=== PATIENT | male | born 1950 | race Caucasian/White ===

== ENCOUNTER 2016-12-21 08:51 | Outpatient (CLI) | payer MEDICARE | END 2016-12-21 08:52 | disposition home or self-care (01) | DX: E78.00 Pure hypercholesterolemia, unspecified (principal); I10 Essential (primary) hypertension ==

== ENCOUNTER 2017-11-16 11:12 | Outpatient (CLI) | payer MEDICARE ==
[2017-11-16 17:39] LABS: BASOPHILS % (AUTO) 0.6 %; EOSINOPHILS # (AUTO) 0.1 10^3/uL (0.0-0.7); EOSINOPHILS % (AUTO) 1.4 %; HGB - HEMOGLOBIN 15.8 g/dL (14.0-18.0); LYMPHOCYTES # (AUTO) 2.4 10^3/uL (1.5-3.5); LYMPHOCYTES % (AUTO) 32.8 %; MEAN CORPUSCULAR HEMOGLOBIN 28.9 pg (27.0-31.0); MEAN CORPUSCULAR HGB CONC 32.8 g/dL (32.0-36.0); MEAN CORPUSCULAR VOLUME 88.1 fL (80.0-94.0); MEAN PLATELET VOLUME 9.7 fL (7.4-11.4); MONOCYTES # (AUTO) 0.6 10^3/uL (0.0-1.0); MONOCYTES % (AUTO) 8.4 %; NEUTROPHILS # (AUTO) 4.2 10^3/uL (1.5-6.6); NEUTROPHILS % (AUTO) 56.8 %; PLT - PLATELET COUNT 209 10^3/uL (130-450); RED BLOOD COUNT 5.48 10^6/uL (4.70-6.10); RED CELL DISTRIBUTION WIDTH 13.4 % (12.0-15.0); WHITE BLOOD COUNT 7.3 x10^3/uL (4.8-10.8)
[2017-11-16 18:15] LABS: ALBUMIN 4.3 g/dL (3.2-5.5); ALBUMIN/GLOBULIN RATIO 1.5 (1.0-2.2); ALKALINE PHOSPHATASE 57 IU/L (42-121); ALT ALANINE AMINOTRANSFERASE 31 IU/L (10-60); AST ASPARTATE AMINOTRANSFERASE 25 IU/L (10-42); BILIRUBIN,TOTAL 0.6 mg/dL (0.2-1.0); BUN - BLOOD UREA NITROGEN 14 mg/dL (6-20); CARBON DIOXIDE - CO2 27 mmol/L (21-32); CHLORIDE 100 mmol/L (101-111); CHOL/HDL RATIO 4.3 (<5.0); CHOLESTEROL 126 mg/dL; CREATININE 0.8 mg/dL (0.6-1.2); GFR - MDRD 97 (>89); GLUCOSE 98 mg/dL (70-100); HDL CHOLESTEROL 29 mg/dL; LDL CHOLESTEROL,CALCULATED 78 mg/dL; LDL/HDL RATIO 2.7 (<3.6); SODIUM 137 mmol/L (135-145); TOTAL PROTEIN 7.1 g/dL (6.7-8.2); VLDL CHOLESTEROL 19 mg/dL
== END 2017-11-16 11:13 | disposition home or self-care (01) ==
LOC: LAB.F 11:12
PROVIDERS: ATTEND Nurse Practitioner Family
DX: I25.10 Atherosclerotic heart disease of native coronary artery without angina pectoris (principal); Z12.5 Encounter for screening for malignant neoplasm of prostate; E78.00 Pure hypercholesterolemia, unspecified; R10.13 Epigastric pain
CPT/HCPCS: 36415; 80053; 80061; 84443; 85025; G0103; 83721; 84153

== ENCOUNTER 2024-03-21 20:54 | Emergency (ER) | payer MEDICARE ==
[2024-03-21 22:03] LABS: BASOPHILS % (AUTO) 0.3 %; EOSINOPHILS # (AUTO) 0.1 10^3/uL (0.0-0.7); EOSINOPHILS % (AUTO) 0.5 %; HCT - HEMATOCRIT 50.2 % (42.0-52.0); HGB - HEMOGLOBIN 16.3 g/dL (14.0-18.0); LYMPHOCYTES # (AUTO) 0.7 10^3/uL (1.5-3.5); LYMPHOCYTES % (AUTO) 4.6 %; MEAN CORPUSCULAR HEMOGLOBIN 29.3 pg (27.0-31.0); MEAN CORPUSCULAR HGB CONC 32.5 g/dL (32.0-36.0); MEAN CORPUSCULAR VOLUME 90.3 fL (80.0-94.0); MEAN PLATELET VOLUME 11.7 fL (7.4-11.4); MONOCYTES # (AUTO) 1.3 10^3/uL (0.0-1.0); MONOCYTES % (AUTO) 8.9 %; NEUTROPHILS # (AUTO) 12.1 10^3/uL (1.5-6.6); NEUTROPHILS % (AUTO) 85.4 %; PLT - PLATELET COUNT 223 10^3/uL (130-450); RED BLOOD COUNT 5.56 10^6/uL (4.70-6.10); RED CELL DISTRIBUTION WIDTH 12.6 % (12.0-15.0); WHITE BLOOD COUNT 14.2 x10^3/uL (4.8-10.8)
[2024-03-21] MEDS: OXYMETAZOLINE HCL 100 SPRAYS BOTTLE NAS STA (22:17)
[2024-03-21] MEDS: lidocaine 1% 20 ML MDV SUBQ ONE (22:18)
[2024-03-21 22:21] LABS: ALBUMIN 4.5 g/dL (3.2-5.5); ALBUMIN/GLOBULIN RATIO 1.7 (1.0-2.2); CALCIUM 9.7 mg/dL (8.5-10.3); CREATININE 1.3 mg/dL (0.6-1.3); POTASSIUM 4.1 mmol/L (3.5-4.5); TOTAL PROTEIN 7.2 g/dL (6.4-8.9)
[2024-03-21 23:06] VITALS: BP 123/97
--- NOTE | 2024-03-21 23:17 | ED Physician Documentation ---
PD HPI HEENT - Stated complaint Stated Complaint: NOSE BLEED - Chief complaint Chief Complaint: Heent - History obtained from History obtained from: Patient - Additional information Additional information: Patient is a 73-year-old male presenting for evaluation of what he states is a nosebleed that started around 6 PM. Patient was seen earlier today after a fall with injuries to his face and left hand. CT imaging was obtained at that time and he had a laceration repaired on his left hand and was also given a tetanus booster. He was also found to have COVID. Patient states that around 6 PM he blew his nose and then started to have bleeding that he was unable to stop. Does not take a blood thinner. Review of Systems Nose: reports: Epistaxis PD PAST MEDICAL HISTORY - Past Medical History Cardiovascular: Hypertension, High cholesterol Respiratory: COPD Neuro: Dementia Endocrine/Autoimmune: None GI: None : None Psych: None Musculoskeletal: None Derm: None - Past Surgical History Past Surgical History: Yes Ortho: Shoulder arthroplasty - Present Medications Home Medications: Ambulatory Orders Medication Instructions Recorded Confirmed ARIPiprazole [Abilify] 20 mg PO DAILY 03/21/24 03/21/24 Acetaminophen [Tylenol] 650 mg PO DAILY 03/21/24 03/21/24 Aspirin [[place] Aspirin EC] 81 mg PO DAILY 03/21/24 03/21/24 Atorvastatin [Lipitor] 20 mg PO QPM 03/21/24 03/21/24 HYDROcod/ACETAM 5/325 [[place] 5/325] 1 - 2 tablet PO Q6H PRN 03/21/24 03/21/24 Ibuprofen [Advil] 400 mg PO DAILY PM 03/21/24 03/21/24 Lisinopril [Zestril] 20 mg PO DAILY 03/21/24 03/21/24 Multivitamin 1 each PO DAILY 03/21/24 03/21/24 - Allergies Allergies/Adverse Reactions: Allergies Allergy/AdvReac Type Severity Reaction Status Date / Time No Known Drug Allergies Allergy Verified 03/21/24 08:56 - Social History Does the pt smoke?: No Smoking Status: Never smoker Does the pt drink ETOH?: No Does the pt have substance abuse?: Yes - Immunizations Immunizations are current?: No Immunizations: Other immun not current - POLST Patient has POLST: No PD ED PE NORMAL - General General: Alert and oriented X 3, No acute distress, Well developed/nourished, Other (Blood covering clothing and legs) - HEENT HEENT: PERRL, EOMI, Other (Bruising to face, laceration to soft tissue triangle of nose) - Neck Neck: Supple, no meningeal sign - Cardiac Cardiac: RRR, Other (Tachycardic, regular rhythm) - Respiratory Respiratory: No respiratory distress, Clear bilaterally - Derm Derm: Warm and dry - Neuro Neuro: Alert and oriented X 3, No motor deficit, Normal speech PD ED PE EXPANDED - HEENT HEENT Visual: 1 - laceration Results - Vitals Vitals: Vital Signs - 24 hr 03/21/24 03/21/24 03/21/24 21:00 22:55 23:35 Temperature 36.6 C Heart Rate 126 H 99 Respiratory 18 20 Rate Blood Pressure 132/88 H 123/97 H O2 Saturation 90 L 90 L 94 Oxygen O2 Source Room air - Labs Labs: Laboratory Tests 03/21/24 03/21/24 21:58 21:58 WBC 14.2 H RBC 5.56 Hgb 16.3 Hct 50.2 MCV 90.3 MCH 29.3 MCHC 32.5 RDW 12.6 Plt Count 223 MPV 11.7 H Neut # (Auto) 12.1 H Lymph # (Auto) 0.7 L [place] # (Auto) 1.3 H Eos # (Auto) 0.1 Baso # (Auto) 0.0 Absolute Nucleated RBC 0.00 Nucleated RBC % 0.0 Sodium 139 Potassium 4.1 Chloride 101 Carbon Dioxide 26 Anion Gap 12.0 BUN 22 H Creatinine 1.3 Estimated GFR (MDRD) 54 L Glucose 207 H Calcium 9.7 Total Bilirubin 1.0 AST 42 ALT 36 Alkaline Phosphatase 58 Total Protein 7.2 Albumin 4.5 Globulin 2.7 Albumin/Globulin Ratio 1.7 Procedures - Laceration (location) Nose Length in cm: 1.5 Wound type: Linear Anesthesia: Lidocaine 1% Wound preparation: Hibiclens, Irrigated copiously NS Skin layer closure: Size #-0 - enter number (4-0), Sutures - enter # (4) Other: Patient tolerated well, No complications, Neurovascular intact, Tetanus UTD PD Medical Decision Making - ED course ED course: Patient presenting for evaluation we stated was a nosebleed. However on further inspection he appears to have a laceration to the soft tissue triangle of the nose that appears to be the source of the bleeding. Wound was cleaned and irrigated and sutured. No further bleeding noted. Patient initially was tachycardic but this quickly resolved.CBC, chemistries were reviewed given how much blood he had on him and his initial heart rate but hemoglobin appears stable. Patient was found to have COVID earlier today. Not requiring oxygen. Patient counseled on wound care instructions as well as need to return for suture removal. Departure - Departure Disposition: 01 Home, Self Care Clinical Impression: Laceration of nose, COVID, Nasal bone fractures, Hyperglycemia Condition: Stable Instructions: ED Fx Nasal Conf W X Ray, ED Laceration Ext Skin Glue Comments: You have a laceration to the tip of your nose that was causing the bleeding today. We have placed 4 stitches into the wound to close it. The stitches should be kept in place for 5 to 7 days. You can return to the ER or walk-in clinic to have them removed. Please keep the wound clean and dry. Return to the ER with any worsening. Your blood sugar was also noted to be elevated at 207. If you do not have a history of diabetes and I would recommend close follow-up with your primary care provider as you may need further testing or treatment. Forms: PCP List Discharge Date/Time: 03/21/24 23:35
[2024-03-21 23:35] VITALS: O2SAT 94
== END 2024-03-21 23:35 | disposition home or self-care (01) ==
LOC: ED 20:54
DX: S01.21XA Laceration without foreign body of nose, initial encounter (principal); R73.9 Hyperglycemia, unspecified; S02.2XXA Fracture of nasal bones, initial encounter for closed fracture; S02.40DA Maxillary fracture, left side, initial encounter for closed fracture; S00.10XA Contusion of unspecified eyelid and periocular area, initial encounter; S61.412A Laceration without foreign body of left hand, initial encounter; S00.31XA Abrasion of nose, initial encounter; S80.212A Abrasion, left knee, initial encounter; S80.211A Abrasion, right knee, initial encounter; W01.0XXA Fall on same level from slipping, tripping and stumbling without subsequent striking against object, initial encounter; Y92.009 Unspecified place in unspecified non-institutional (private) residence as the place of occurrence of the external cause; D72.829 Elevated white blood cell count, unspecified; U07.1 COVID-19; F03.A0 Unspecified dementia, mild, without behavioral disturbance, psychotic disturbance, mood disturbance, and anxiety; I45.10 Unspecified right bundle-branch block; Z20.818 Contact with and (suspected) exposure to other bacterial communicable diseases; Z20.828 Contact with and (suspected) exposure to other viral communicable diseases; Z23 Encounter for immunization
CPT/HCPCS: 12002; 12011; 36415; 70450; 70486; 71045; 73120; 73562; 80053; 82803; 83690; 85025; 87633; 90471; 90715; 93005; 99284; A9270

== ENCOUNTER 2024-04-05 13:52 | Emergency (ER) | payer MEDICARE ==
[2024-04-05 14:15] VITALS: BP 128/97; O2SAT 95
--- NOTE | 2024-04-05 14:17 | ED Physician Documentation ---
PD HPI WOUND RECHECK - Stated complaint Stated Complaint: STITCH REMOVAL - Chief complaint Chief Complaint: Wound - Histroy obtained from History obtained from: Patient (here for suture removal nostril and hand.) - History of Present Illness Location: Left Hand, Other (nasal rim with single suture. Both knees abraded and healing though with hard/dry skin centrally.) Recently seen: Emergency Dept (2 weeks ago fell with sutures to hand and nasal rim. Knees abraded without skin lac per se. Pt states is not doing anything to the wounds.) PD PAST MEDICAL HISTORY - Past Medical History Cardiovascular: Hypertension, High cholesterol Respiratory: COPD Neuro: Dementia Endocrine/Autoimmune: None GI: None : None Psych: None Musculoskeletal: None Derm: None - Past Surgical History Past Surgical History: Yes Ortho: Shoulder arthroplasty - Present Medications Home Medications: Ambulatory Orders Medication Instructions Recorded Confirmed ARIPiprazole [Abilify] 20 mg PO DAILY 03/21/24 03/21/24 Acetaminophen [Tylenol] 650 mg PO DAILY 03/21/24 03/21/24 Aspirin [[place] Aspirin EC] 81 mg PO DAILY 03/21/24 03/21/24 Atorvastatin [Lipitor] 20 mg PO QPM 03/21/24 03/21/24 Ibuprofen [Advil] 400 mg PO DAILY PM 03/21/24 03/21/24 Lisinopril [Zestril] 20 mg PO DAILY 03/21/24 03/21/24 Multivitamin 1 each PO DAILY 03/21/24 03/21/24 - Allergies Allergies/Adverse Reactions: Allergies Allergy/AdvReac Type Severity Reaction Status Date / Time No Known Drug Allergies Allergy Verified 04/05/24 14:09 - Social History Does the pt smoke?: No Smoking Status: Never smoker Does the pt drink ETOH?: No Does the pt have substance abuse?: Yes - Immunizations Immunizations are current?: No Immunizations: Other immun not current - POLST Patient has POLST: No PD ED PE NORMAL - Vitals Vital signs reviewed: Yes - General General: Alert and oriented X 3, No acute distress, Well developed/nourished - HEENT HEENT: Other (left nostril opening with single suture. skin appears healing. ) - Derm Derm: Normal color, Warm and dry - Extremities Extremities: Other (knee abrasion with hard surface scabbing. Hand lac with dried blood/scabbing over it, partly burying the sutures. Skin appears intact. No signs of infection. Will need to loosed the scab with water/ointment for getting sutures out more easily. ) - Neuro Neuro: Alert and oriented X 3, No motor deficit, No sensory deficit Results - Vitals Vitals: Oxygen O2 Source Room air PD Medical Decision Making - ED course Complexity details: reviewed old records (prior ED chart regarding these injuries. ), considered differential (The patient here for suture removal. He has not been using any ointment to the area nor his knee abrasions. There are dried scabs and crustiness around the wounds. The sutures are still in place on the back of the hand and 1 in the right nostril opening. ), d/w patient ED course: We likely have gotten as much as we can from the sutures at this point in time. There is some slower healing on the knees and around the hand sutures because of scabbing at the abrasions due to lack appointment etc. We will remove the sutures and encouraged him to use ointment and sterile bandaging until fully healed in. Departure - Departure Disposition: 01 Home, Self Care Clinical Impression: Visit for suture removal Condition: Stable Record reviewed to determine appropriate education?: Yes Comments: I would encourage you to use ointment to the scabbed areas 2-3 times daily to help soften those up. As a soften and hopefully lift off, that will allow better than the skin around it to heal in. It is hard for the skin to heal and against the hard scab tissue. We did remove the sutures. I think we would have gotten as much advantage from them as we can at this point. Forms: PCP List Discharge Date/Time: 04/05/24 15:03
[2024-04-05] MEDS: BACITRACIN ZINC OINT 1 PACKET TOP STA (14:42)
== END 2024-04-05 15:03 | disposition home or self-care (01) ==
LOC: ED 13:52
DX: S01.21XD Laceration without foreign body of nose, subsequent encounter (principal); S61.412D Laceration without foreign body of left hand, subsequent encounter; W19.XXXD Unspecified fall, subsequent encounter
CPT/HCPCS: 99282; A9270